=== PATIENT | male | born 1945 | race Caucasian/White ===

== ENCOUNTER 2025-04-19 18:16 | Emergency (ER) | payer MEDICARE ==
[2025-04-19 19:29] LABS: #Basophils 0.04 10x3/uL (0.0-0.2); #Eosinophils 0.05 10x3/uL (0.0-0.7); #Monocytes 0.73 10x3/uL (0.11-0.59); #Neutrophils 7.54 10x3/uL (1.40-6.50); %Basophils 0.4 % (0.0-1.0); %Eosinophils 0.5 % (0.0-10.0); %Lymphocytes 20.6 % (21.0-51.0); %Monocytes 6.9 % (0.0-10.0); %Neutrophils 71.0 % (42.0-75.0); Hematocrit 44.9 % (42.0-52.0); Hemoglobin 16.4 g/dL (14.0-18.0); Mean Corpuscular Hemoglobin 32.2 pg (27.0-31.0); Mean Corpuscular Volume 88.0 fL (78.0-98.0); Platelet Count 253 10x3/uL (130-400); Red Blood Cell (RBC) Count 5.10 mill/uL (4.70-6.10); White Blood Cell (WBC) Count 10.61 10x3/uL (4.8-10.8)
[2025-04-19 19:30] LABS: Actual Bicarbonate (HCO3v) 24.4 mEq/L (22-28); Base Excess -0.2 mEq/L (-2.0 to +3.0); Calcium, Ionized (venous) 1.18 mmol/L (1.16-1.32); Chloride (VBG) 96 mmol/L (98-106); Hematocrit-VBG 51 % (42.0-52.0); Hemoglobin (Hb) 17.3 g/dL (12.6-17.4); Potassium (VBG) 4.37 mmol/L (3.70-5.30); Sodium 133 mmol/L (133-146)
[2025-04-19 19:40] LABS: Bacteria/HPF None Seen HPF (None Seen); CAUTI Indications for Culture Dysuria,urgency,freq; Glucose, Urine (Dipstick) Greater than 1000 mg/dL (Negative); Leukocyte Negative Leu/uL (Negative); Protein, Urine (Dipstick) Negative (Neg-Trace); RBC/HPF 0-3 HPF (0-3); Specific Gravity, Urine 1.036 (1.002-1.036); WBC/HPF 0-3 HPF (0-3)
[2025-04-19 19:51] LABS: Urine Culture Reflex No No
[2025-04-19 20:03] LABS: Osmolality, Serum 302 mOsm/kg (280-301)
[2025-04-19 20:11] LABS: ALT (SGPT) 8 U/L (Less than 45); AST (SGOT) 19 U/L (11-34); Albumin 3.5 g/dL (3.1-4.5); Alkaline Phosphatase 100 U/L (40-110); Anion Gap 17 mmol/L (10-20); BUN (Urea Nitrogen) 19 mg/dL (8.4-25.7); Bilirubin, Total 0.5 mg/dL (0.3-1.2); Calc. Creatinine Clearance 0 mL/min (70-130); Calcium 9.1 mg/dL (7.8-10.44); Carbon Dioxide 23 mmol/L (23-31); Chloride 98 mmol/L (98-107); Globulin 4.5 g/dL (2.4-3.5); Glucose 462 mg/dL (83-110); Magnesium 2.0 mg/dL (1.6-2.6); Potassium 4.5 mmol/L (3.5-5.1); Sodium 133 mmol/L (136-145)
== END 2025-04-19 21:25 | disposition home or self-care (01) ==
LOC: ERS 18:16 → EDBD 18:16 → ERS 21:25
DX: E11.9 Type 2 diabetes mellitus without complications (principal); Z55.6 Problems related to health literacy
CPT/HCPCS: 80053; 81001; 82010; 82805; 82962; 83605; 83735; 83930; 85025; 87040; 93005; 94760; 96361; 96374; 99285; J1815; 36415; 36416